=== PATIENT | male | born 1955 | race Caucasian/White ===

== ENCOUNTER 2024-10-30 06:51 | Emergency (ER) | payer MEDICARE ==
[~2024-10-30] VITALS: Ht 175.3 cm; Wt 91.3 kg
[2024-10-30] MEDS: LOPERAMIDE HCL 2 MG CAP PO ONE (07:23)
[2024-10-30] MEDS: SODIUM CHLORIDE 0.9% 1000ML 1,000 ML IV STA (07:24)
[2024-10-30] MEDS: ONDANSETRON HCL INJ 2MG/ML 2ML 2 MG/ML VIAL IV STA (07:24)
[2024-10-30] MEDS ORDERED: IOPAMIDOL 370 MG/ML 100 ML INFUS..BTL INJ ONE (07:40)
[2024-10-30] MEDS: FAMOTIDINE 20 MG/2 ML VIAL IV STA (07:51)
[2024-10-30] MEDS ORDERED: LOPERAMIDE2 MG PO (08:46)
[2024-10-30] MEDS ORDERED: ONDANSETRON ODT4 MG PO (08:46)
[2024-10-30] MEDS ORDERED: DEXTROSE 50% SYRINGE 50 ML IV STA (08:47)
[2024-10-30] MEDS ORDERED: INSULIN REGULAR, HUMAN 100 UNIT/1 ML IV ONE (09:00)
[2024-10-30] MEDS ORDERED: REPATHA SY140 MG/1 M (09:10)
[2024-10-30] MEDS ORDERED: CLOPIDOGREL75 MG PO (09:10)
[2024-10-30] MEDS ORDERED: NEXIUM20 MG PO (09:10)
[2024-10-30] MEDS ORDERED: LEVOTHYROXINE100 MCG (09:10)
[2024-10-30] MEDS ORDERED: ZYRTEC10 M3 (09:10)
[2024-10-30] MEDS ORDERED: VITAMIN B-12100 MCG (09:10)
[2024-10-30] MEDS ORDERED: VITAMIN D350 MCG (09:10)
[2024-10-30] MEDS ORDERED: ATORVASTATIN CA20 MG PO (09:10)
[2024-10-30] MEDS ORDERED: ASPIRIN EC81 MG PO (09:10)
[2024-10-30] MEDS ORDERED: MULTI-VITAMIN1 EACH PO (09:10)
[2024-10-30] MEDS ORDERED: METOPROLOL TART50 MG PO (09:10)
[2024-10-30] MEDS ORDERED: PRALUENT P150 MG/1 M (09:10)
[2024-10-30] MEDS ORDERED: VASCEPA1 GM (09:10)
[2024-10-30] MEDS ORDERED: FLONASE ALLERG9.9 ML INH (09:10)
[2024-10-30] MEDS ORDERED: DOXYCYCLINE HY100 MG PO (09:24)
[2024-10-30 09:56] VITALS: PULSE 84; RESP 16; TEMP 98; O2SAT 98
== END 2024-10-30 09:56 | disposition home or self-care (01) ==
LOC: FSED 06:54
DX: R11.2 Nausea with vomiting, unspecified (principal); R10.13 Epigastric pain; R19.7 Diarrhea, unspecified; E86.0 Dehydration
CPT/HCPCS: 74176; 80053; 81003; 85025; 96374; 96375; 99284; J2405; J7030; Q9967